=== PATIENT | male | born 1980 | race Two or more races ===

== ENCOUNTER 2020-03-17 10:55 | Emergency (ER) | payer SELFPAY ==
[~2020-03-17] VITALS: Ht 175.3 cm; Wt 90.7 kg
[2020-03-17 11:25] VITALS: BP 145/92
== END 2020-03-17 12:03 | disposition left against medical advice (07) ==
LOC: ER 10:55 → EDBD 10:55 → ER 12:03
DX: F10.920 Alcohol use, unspecified with intoxication, uncomplicated (principal); Z53.21 Procedure and treatment not carried out due to patient leaving prior to being seen by health care provider

== ENCOUNTER 2020-04-06 23:48 | Emergency (ER) | payer SELFPAY ==
[~2020-04-06] VITALS: Ht 175.3 cm; Wt 81.6 kg
[2020-04-07] MEDS ORDERED: SODIUM CHLORIDE 0.9% 1,000 ML IV ONE
[2020-04-07] MEDS ORDERED: LORazepam 2MG/ML-1ML VIAL IV ONE
[2020-04-07] MEDS ORDERED: THIAMINE INJ 100 MG in SODIUM CHLORIDE 0.9% 1,000 ML IV ONE (00:15)
[2020-04-07] MEDS ORDERED: THIAMINE 100mg/ml INJ (200mg/2ml VIAL) ONE (00:48)
[2020-04-07 00:52] LABS: Urine Bacteria NONE SEEN /hpf (None Seen); Urine Blood Negative /uL (Negative); Urine Mucus MANY (None Seen); Urine Specific Gravity 1.035 (1.001-1.035); Urine WBC 7 /hpf (0 - 3)
[2020-04-07 00:53] LABS: Amphetamine Screen, Urine NEGATIVE (NEGATIVE); Barbiturate Scree,Urine NEGATIVE (NEGATIVE); Benzodiazephine Screen, Urine NEGATIVE (NEGATIVE); Cannabinoid Screen, Urine POSITIVE (NEGATIVE); Cocaine Screen, Urine POSITIVE (NEGATIVE); Opiate Scree,Urine NEGATIVE (NEGATIVE); Phencyclidine Screen, Urine NEGATIVE (NEGATIVE)
[2020-04-07 01:18] LABS: Basophils # (auto) 0.3 10 ^3/uL (0-0.2); Basophils % (auto) 4.6 % (0.0-2.0); Eosinophils # (auto) 0 10 ^3/uL (0-0.8); Eosinophils % (auto) 0.7 % (0.0-7.0); Hematocrit 49.6 % (41.0-53.0); Hemoglobin 17.2 g/dL (13.5-17.5); Lymphocytes # (auto) 1.1 10 ^3/uL (0.4-5.4); Lymphocytes % (auto) 17.3 % (10.0-50.0); Mean Corpuscular Hemoglobin 32.9 pg (28.0-32.0); Mean Corpuscular Hgb Conc. 34.7 g/dL (32.0-36.0); Mean Corpuscular Volume 94.9 fL (80.0-100.0); Monocytes # (auto) 0.4 10 ^3/uL (0-1.3); Monocytes % (auto) 6.9 % (0.0-12.0); Neutrophils # (auto) 4.3 10 ^3/uL (1.6-8.6); Neutrophils % (auto) 70.5 % (37.0-80.0); Nucleated Red Blood Cells % 0.1 %; Platelet Count (auto) 189 10^3/uL (140-450); Red Blood Cells 5.23 10^6/uL (4.5-5.90); Red Cell Distribution Width 11.9 % (11.8-14.3); White Blood Cell 6.2 10^3/uL (4.4-10.8)
[2020-04-07 01:32] LABS: Alanine Aminotransferase 84 U/L (16-61); Albumin 3.7 g/dL (3.4-5.0); Anion Gap 14 (5-15); BUN/Creatinine Ratio 8.8; Blood Urea Nitrogen 8 mg/dL (7-18); Calcium 8.3 mg/dL (8.5-10.1); Carbon Dioxide 23 mmol/L (21-32); Chloride 101 mmol/L (98-107); GFR African American 119 mL/min; GFR Non-African American 98 mL/min; Glucose 107 mg/dL (74-106); Salicylate < 1.7 mg/dL (2.8-20.0); Sodium 138 mmol/L (136-145)
[2020-04-07 01:35] LABS: Acetaminophen < 2.0 ug/mL (10-30)
[2020-04-07 01:43] LABS: Alkaline Phosphatase 124 U/L (45-117); Aspartate Aminotransferase 75 U/L (15-37); Bilirubin, Total 1.1 mg/dL (0.2-1.0); Total Protein 7.3 g/dL (6.4-8.2)
[2020-04-07 01:49] LABS: Potassium 2.8 mmol/L (3.5-5.1)
[2020-04-07] MEDS ORDERED: POTASSIUM EFFERVESENT TAB 25 MEQ PO ONE (02:15)
[2020-04-07 02:22] VITALS: BP 140/90
[2020-04-07] MEDS ORDERED: ONDANSETRON HCL 4 MG/2 ML VIAL ONE (02:27)
== END 2020-04-07 03:25 | disposition home or self-care (01) ==
LOC: ER 23:48
DX: F10.229 Alcohol dependence with intoxication, unspecified (principal); F11.93 Opioid use, unspecified with withdrawal; E87.6 Hypokalemia
CPT/HCPCS: 36415; 80053; 80307; 80320; 80329; 81001; 84484; 85025; 93005; 96365; 96366; 96375; 99284; J2060; J2405; J3411; J7030

== ENCOUNTER 2020-12-02 10:43 | Emergency (ER) | payer SELFPAY ==
[~2020-12-02] VITALS: Ht 180.3 cm; Wt 81.6 kg
[2020-12-02 10:43] VITALS: BP 148/70
[2020-12-02] MEDS ORDERED: LORazepam 2MG/ML-1ML VIAL IV ONE (11:00)
[2020-12-02] MEDS ORDERED: SODIUM CHLORIDE 0.9% 1,000 ML IV ONE (11:00)
== END 2020-12-02 11:04 | disposition left against medical advice (07) ==
LOC: ER 10:43 → EDBD 10:43 → ER 11:04
DX: F10.20 Alcohol dependence, uncomplicated (principal); F11.23 Opioid dependence with withdrawal; Y90.9 Presence of alcohol in blood, level not specified; F17.210 Nicotine dependence, cigarettes, uncomplicated; I10 Essential (primary) hypertension; Z53.29 Procedure and treatment not carried out because of patient's decision for other reasons

== ENCOUNTER 2022-01-28 18:16 | Emergency (ER) | payer SELFPAY ==
[2022-01-28 18:52] LABS: Basophils # (auto) 0 10 ^3/uL (0-0.2); Basophils % (auto) 0.5 % (0.0-2.0); Eosinophils # (auto) 0.1 10 ^3/uL (0-0.8); Eosinophils % (auto) 1.8 % (0.0-7.0); Hemoglobin 15.3 g/dL (13.5-17.5); Lymphocytes # (auto) 2.6 10 ^3/uL (0.4-5.4); Lymphocytes % (auto) 40.7 % (10.0-50.0); Mean Corpuscular Hemoglobin 30.5 pg (28.0-32.0); Mean Corpuscular Volume 89.8 fL (80.0-100.0); Monocytes # (auto) 0.5 10 ^3/uL (0-1.3); Monocytes % (auto) 7.1 % (0.0-12.0); Neutrophils # (auto) 3.2 10 ^3/uL (1.6-8.6); Neutrophils % (auto) 49.9 % (37.0-80.0); Nucleated Red Blood Cells % 0.1 %; Red Blood Cells 5.01 10^6/uL (4.5-5.90); Red Cell Distribution Width 13.3 % (11.8-14.3); White Blood Cell 6.5 10^3/uL (4.4-10.8)
[2022-01-28 19:13] LABS: Albumin 4.1 g/dL (3.4-5.0); BUN/Creatinine Ratio 12.5; Calcium 8.6 mg/dL (8.5-10.1); Potassium 3.7 mmol/L (3.5-5.1)
[2022-01-28 19:15] LABS: Salicylate 2.1 mg/dL (2.8-20.0)
[2022-01-28 19:16] LABS: Bilirubin, Total 0.2 mg/dL (0.2-1.0); Total Protein 7.5 g/dL (6.4-8.2)
[2022-01-28 19:22] LABS: Acetaminophen < 2.0 ug/mL (10-30)
[2022-01-28 19:40] LABS: Urine Bacteria NONE SEEN /hpf (None Seen); Urine Blood Negative /uL (Negative); Urine Mucus FEW (None Seen); Urine Specific Gravity 1.023 (1.001-1.035); Urine WBC 1 /hpf (0 - 3)
[2022-01-28 19:48] LABS: Amphetamine Screen, Urine NEGATIVE (NEGATIVE); Barbiturate Scree,Urine NEGATIVE (NEGATIVE); Benzodiazephine Screen, Urine NEGATIVE (NEGATIVE); Cannabinoid Screen, Urine NEGATIVE (NEGATIVE); Cocaine Screen, Urine NEGATIVE (NEGATIVE); Opiate Scree,Urine NEGATIVE (NEGATIVE); Phencyclidine Screen, Urine NEGATIVE (NEGATIVE)
[2022-01-28 20:30] VITALS: BP 148/94
== END 2022-01-28 21:16 | disposition home or self-care (01) ==
LOC: ER 18:16 → EDBD 18:16 → ER 21:16
DX: T40.2X1A Poisoning by other opioids, accidental (unintentional), initial encounter (principal); I10 Essential (primary) hypertension; F17.210 Nicotine dependence, cigarettes, uncomplicated; Y92.89 Other specified places as the place of occurrence of the external cause
CPT/HCPCS: 36415; 80053; 80307; 80320; 80329; 81001; 85025